=== PATIENT | female | born 1960 | race Caucasian/White ===

== ENCOUNTER 2024-01-02 17:00 | Emergency (ER) | payer OTHER, SELFPAY ==
--- NOTE | ~2024-01-02 | XR_ITS ---
XR chest 2V Ordering provider: Abisai Belcher MD History: 63 years Female with . cp, sob . Comparison: June 24, 2011 FINDINGS: MEDIASTINUM: The cardiac silhouette is not enlarged. LUNGS: No infiltrates, effusions or pneumothorax. OTHER: No free air under the diaphragm. IMPRESSION: No acute cardiopulmonary pathology. Reviewed, dictated and finalized at location A.
--- NOTE | ~2024-01-02 | CT_ITS ---
CT brain wo con Ordering provider: Tran Vu APRN History: 63 years Female with . sudden onset headache, dizziness, blurry vision . Comparison: None. Technique: CT of the head without contrast. Radiation reduction technique utilized.The dose-length product was 681 mGy-cm. FINDINGS: BRAIN PARENCHYMA AND CSF SPACES: Mild leukoaraiosis and diffuse cortical atrophy. Mild atheromatous d isease. No midline shift, mass effect or hemorrhage. The brain parenchyma and CSF spaces are otherwi se normal. VISUALIZED PARANASAL SINUSES: Well aerated. MASTOIDS: Well aerated. BONES: The bones appear intact. SOFT TISSUES: Visualized nasopharynx is normal. Superficial soft tissues are normal. IMPRESSION: No acute intracranial findings. Reviewed, dictated and finalized at location A.
[2024-01-02 17:02] VITALS: BP 153/110; PULSE 93; RESP 20; TEMP 36.6; O2SAT 98
--- NOTE | 2024-01-02 17:03 | ECG_ITS ---
Test Date: 2024-01-02 17:09:07 Measurements Intervals [place] Rate: 70 P: 62 MN: 181 QRS: 60 QRSD: 89 T: 59 QT: 407 QTc: 442 Interpretive Statements SINUS RHYTHM No previous ECG available for comparison Electronically Signed On 01-03-2024 09:39:39 CDT by Pineda Smyth M.D.
[2024-01-02 17:17] LABS: Basophils Absolute Auto 0.1 K/mm3 (0.0-0.1); Basophils Percent Auto 1.2 % (0.2-1.2); Eosinophils Absolute Auto 0.1 K/mm3 (0-0.3); Eosinophils Percent Auto 1.2 % (0-4.4); Hematocrit 41.2 % (37.0-47.0); Hemoglobin 14.1 g/dL (12.0-15.0); Immature Granulocyte Absolute 0.01 K/mm3 (0.00-0.031); Immature Granulocyte Percent A 0.2 % (0-0.5); Lymphocytes Absolute Auto 2.87 K/mm3 (0.9-3.2); Lymphocytes Percent Auto 48.6 % (18.3-44.2); Mean Corpuscular HGB Conc 34.2 g/dl (32-36); Mean Corpuscular Hemoglobin 30.7 pg (26-34); Mean Corpuscular Volume 89.8 fl (80-100); Mean Platelet Volume 9.1 fl (7.4-10.4); Monocytes Absolute Auto 0.4 K/mm3 (0.1-0.6); Monocytes Percent Auto 6.6 % (2.6-8.5); Neutrophils Absolute Auto 2.5 K/mm3 (1.3-6.7); Neutrophils Percent Auto 42.2 % (45.5-73.1); Platelet Count Result 277 k/mm3 (150-375); Red Blood Count 4.59 M/mm3 (4.2-5.4); Red Cell Distribution Width 12.4 % (11.5-14.5); White Blood Count 5.9 K/mm3 (4.5-10.0)
[2024-01-02 17:32] LABS: Prothrombin Time 13.2 Seconds (11.1-14.7)
[2024-01-02 17:33] LABS: Alanine Aminotransferase 21 U/L (6-35); Albumin Level 4.4 g/dL (3.5-5.1); Alkaline Phosphatase 90 U/L (38-126); Anion Gap 8 mmol/L (4-12); Aspartate Amino Transferase 20 U/L (14-36); Bilirubin,Total 0.6 mg/dL (0.2-1.3); Blood Urea Nitrogen 12 mg/dL (7-17); Calcium 9.3 mg/dL (8.4-10.2); Carbon Dioxide 27 mmol/L (22-30); Chloride 105 mmol/L (98-107); Estimated CRCL calculation 66 ml/min; Estimated Glomerular Filt Rate > 60; Glucose 113 mg/dL (65-110); Lipase 72 U/L (23-300); Potassium 3.7 mmol/L (3.4-5.0); Sodium 140 mmol/L (137-145)
[2024-01-02 17:34] LABS: Partial Thromboplastin Time 22.6 Seconds (22.3-36.8)
[2024-01-02 17:44] LABS: Troponin I < 0.012 ng/mL (0.000-0.034)
--- NOTE | 2024-01-02 18:28 | ED_ITS ---
HPI - Chest Pain General Chief Complaint: Chest Pain <Tran Vu RELOCATION COUNSELOR - Last Filed: 01/02/24 18:33> Stated Complaint: cp, sob, elevated bp <Tran Vu APRN - Last Filed: 01/02/24 18:33> Time Seen by Provider: 01/02/24 18:25 <Tran Vu RELOCATION COUNSELOR - Last Filed: 01/02/24 18:33> Focused HPI: Patient is a 63-year-old female presents to the ER with multiple medical complaints. She endorses a headache, lightheadedness, blurry vision, chest pain, jaw pain, and bilateral upper arm fatigue. patient reports she has never been diagnosed with high blood pressure but used her son's cuff to take it yesterday and the reading was 180/90s. Today she took her blood pressure at home again and it was 170s/90s. She denies any recent sick contacts and denies any recent fevers. Patient reports she takes Adderall every day to treat her ADD and also uses a CPAP at night. She denies any current shortness of breath but reports she did increased shortness of breath when she was on a walk yesterday. GENERAL: Well-appearing, well-nourished, and in no acute distress. HEAD: Normocephalic, atraumatic. CHEST: Clear to auscultation. ?No respiratory distress. Mild bilateral lower extremity edema with no pitting. HEART: Regular rate and rhythm.? NEURO: ?Alert and oriented x3. Patient screened in triage and initial orders placed.? ?Additional care and disposition to be based upon?diagnostic testing and treatment. <Tran Vu APRN - Last Filed: 01/02/24 18:33> History of Present Illness HPI narrative: Patient is a 63-year-old female presents emergency department with chief complaint of chest pain. Patient reports that she takes Adderall for ADHD and noticed yesterday she started having some discomfort in her chest also notes that she had some episodes of feeling dizzy and reports that she has had a little bit of a headache the patient states that she did not take her Adderall today and today had some other episodes of discomfort in her chest patient den ies diaphoresis reports that she did feel some uncomfortable feeling in her jaw the patient reports no personal prior history of cardiac disease reports she had a stress test many years ago the patient reports that currently the symptoms are extremely mild <Chicho Multani MD - Last Filed: 01/02/24 21:36> Related Data Allergies/Adverse Reactions: Allergies Allergy/AdvReac Type Severity Reaction Status Date / Time milk Allergy Unknown Asthma Verified 01/02/24 17:01 <Tran Vu APRN - Last Filed: 01/02/24 18:33> Review of Systems Review of Systems: A 10 system review of systems was completed on the patient and is negative except for what is stated in the HPI. Nursing and ancillary documentation was reviewed. <Chicho Multani MD - Last Filed: 01/02/24 21:36> Exam Narrative: GENERAL: Well-appearing, well-nourished, and in no acute distress. HEAD: Normocephalic, atraumatic. EYES: PERRLA and EOMI. ENT: Nares clear, no rhinorrhea or epistaxis. Mucous membranes moist. NECK: Supple. CHEST: Clear to auscultation. No respiratory distress. HEART: Regular rate and rhythm. No murmur heard. Normal peripheral pulses. ABDOMEN: Soft, nontender, nondistended, normal active bowel sounds. EXTREMITIES: Normal range of motion. No edema. SKIN: Warm, dry, no rash. NEURO: No focal deficits. Alert and oriented x3. PSYCH: Normal mood and affect. <Chicho Multani MD - Last Filed: 01/02/24 21:36> Course Vital Signs Vital signs: Vital Signs Temperature 36.6 C 01/02/24 17:02 Pulse Rate 93 01/02/24 17:02 Respiratory Rate 20 01/02/24 17:02 Blood Pressure 153/110 H 01/02/24 17:02 Pulse Oximetry 98 01/02/24 17:02 Oxygen Delivery Room Air 01/02/24 17:02 Temperature 36.5 C 01/02/24 20:53 Pulse Rate 70 01/02/24 20:53 Respiratory Rate 16 01/02/24 20:53 Blood Pressure 154/96 H 01/02/24 20:53 Pulse Oximetry 97 01/02/24 20:53 Oxygen Delivery Room Air 01/02/24 20:53 <Tran Vu APRN - Last Filed: 01/02/24 18:33> Vital Signs Temperature 36.6 C 01/02/24 17:02 Pulse Rate 93 01/02/24 17:02 Respiratory Rate 20 01/02/24 17:02 Blood Pressure 153/110 H 01/02/24 17:02 Pulse Oximetry 98 01/02/24 17:02 Oxygen Delivery Room Air 01/02/24 17:02 Temperature 36.5 C 01/02/24 20:53 Pulse Rate 70 01/02/24 20:53 Respiratory Rate 16 01/02/24 20:53 Blood Pressure 154/96 H 01/02/24 20:53 Pulse Oximetry 97 01/02/24 20:53 Oxygen Delivery Room Air 01/02/24 20:53 <Chicho Multani MD - Last Filed: 01/02/24 21:36> MDM - Chest Pain MDM Narrative Medical decision making narrative: Adenosis includes ACS, noncardiac chest pain, he atypical chest pain, Laboratory studies were obtained on the patient showed normal CBC normal CMP EKG showed no acute ischemic changes initial troponin was negative Chest x-ray showed no focal findings CT head showed no evidence of acute abnormality COVID flu and RSV were negative Initial troponin was negative repeat troponin was also negative. The patient would like opt outpatient follow-up. The patient was instructed follow up with primary care provider <Chicho Multani MD - Last Filed: 01/02/24 21:36> Lab Data Result diagrams: 01/02/24 17:13 01/02/24 17:13 <Tran Vu APRN - Last Filed: 01/02/24 18:33> Labs: Lab Results 01/02/24 01/02/24 01/02/24 Range/Units 17:13 19:12 21:03 WBC 5.9 (4.5-10.0) K/mm3 RBC 4.59 (4.2-5.4) M/mm3 Hgb 14.1 (12.0-15.0) g/dL Hct 41.2 (37.0-47.0) % MCV 89.8 (80-100) fl MCH 30.7 (26-34) pg MCHC 34.2 (32-36) g/dl RDW 12.4 (11.5-14.5) % Plt Count 277 (150-375) k/mm3 MPV 9.1 (7.4-10.4) fl Immature Gran % (Auto) 0.2 (0-0.5) % Neut % (Auto) 42.2 L (45.5-73.1) % Lymph % (Auto) 48.6 H (18.3-44.2) % [place] % (Auto) 6.6 (2.6-8.5) % Eos % (Auto) 1.2 (0-4.4) % Baso % (Auto) 1.2 (0.2-1.2) % Lymph # (Auto) 2.87 (0.9-3.2) K/mm3 [place] # (Auto) 0.4 (0.1-0.6) K/mm3 Eos # (Auto) 0.1 (0-0.3) K/mm3 Baso # (Auto) 0.1 (0.0-0.1) K/mm3 Abs Immat Gran (auto) 0.01 (0.00-0.031) K/mm3 Absolute Neuts (auto) 2.5 (1.3-6.7) K/mm3 Absolute Nucleated RBC 0.000 (0.0-0.012) K/mm3 Nucleated RBC % 0.0 (0.0-0.2) % PT 13.2 (11.1-14.7) Seconds INR 1.0 APTT 22.6 (22.3-36.8) Seconds D-Dimer < 0.27 (<0.48) ug/mL Sodium 140 (137-145) mmol/L Potassium 3.7 (3.4-5.0) mmol/L Chloride 105 (98-107) mmol/L Carbon Dioxide 27 (22-30) mmol/L Anion Gap 8 (4-12) mmol/L BUN 12 (7-17) mg/dL Creatinine 0.90 (0.7-1.0) mg/dL Estim Creat Clear Calc 66 ml/min Estimated GFR > 60 (59 - ) Glucose 113 H (65-110) mg/dL Calcium 9.3 (8.4-10.2) mg/dL Total Bilirubin 0.6 (0.2-1.3) mg/dL AST 20 (14-36) U/L ALT 21 (6-35) U/L Alkaline Phosphatase 90 (38-126) U/L Troponin I < 0.012 < 0.012 (0.000-0.034) ng/mL NT-Pro-B Natriuret Pep 29 (19.9-100) pg/mL Total Protein 8.0 (6.3-8.2) g/dL Albumin 4.4 (3.5-5.1) g/dL Lipase 72 (23-300) U/L Influenza A (RT-PCR) Negative (Negative) Influenza B (RT-PCR) Negative (Negative) RSV (RT-PCR) Negative (Negative) SARS-CoV-2 RNA (RT-PCR) Negative (Negative) <Tran Vu, RELOCATION COUNSELOR - Last Filed: 01/02/24 18:33> Lab Results 01/02/24 01/02/24 01/02/24 Range/Units 17:13 19:12 21:03 WBC 5.9 (4.5-10.0) K/mm3 RBC 4.59 (4.2-5.4) M/mm3 Hgb 14.1 (12.0-15.0) g/dL Hct 41.2 (37.0-47.0) % MCV 89.8 (80-100) fl MCH 30.7 (26-34) pg MCHC 34.2 (32-36) g/dl RDW 12.4 (11.5-14.5) % Plt Count 277 (150-375) k/mm3 MPV 9.1 (7.4-10.4) fl Immature Gran % (Auto) 0.2 (0-0.5) % Neut % (Auto) 42.2 L (45.5-73.1) % Lymph % (Auto) 48.6 H (18.3-44.2) % [place] % (Auto) 6.6 (2.6-8.5) % Eos % (Auto) 1.2 (0-4.4) % Baso % (Auto) 1.2 (0.2-1.2) % Lymph # (Auto) 2.87 (0.9-3.2) K/mm3 [place] # (Auto) 0.4 (0.1-0.6) K/mm3 Eos # (Auto) 0.1 (0-0.3) K/mm3 Baso # (Auto) 0.1 (0.0-0.1) K/mm3 Abs Immat Gran (auto) 0.01 (0.00-0.031) K/mm3 Absolute Neuts (auto) 2.5 (1.3-6.7) K/mm3 Absolute Nucleated RBC 0.000 (0.0-0.012) K/mm3 Nucleated RBC % 0.0 (0.0-0.2) % PT 13.2 (11.1-14.7) Seconds INR 1.0 APTT 22.6 (22.3-36.8) Seconds D-Dimer < 0.27 (<0.48) ug/mL Sodium 140 (137-145) mmol/L Potassium 3.7 (3.4-5.0) mmol/L Chloride 105 (98-107) mmol/L Carbon Dioxide 27 (22-30) mmol/L Anion Gap 8 (4-12) mmol/L BUN 12 (7-17) mg/dL Creatinine 0.90 (0.7-1.0) mg/dL Estim Creat Clear Calc 66 ml/min Estimated GFR > 60 (59 - ) Glucose 113 H (65-110) mg/dL Calcium 9.3 (8.4-10.2) mg/dL Total Bilirubin 0.6 (0.2-1.3) mg/dL AST 20 (14-36) U/L ALT 21 (6-35) U/L Alkaline Phosphatase 90 (38-126) U/L Troponin I < 0.012 < 0.012 (0.000-0.034) ng/mL NT-Pro-B Natriuret Pep 29 (19.9-100) pg/mL Total Protein 8.0 (6.3-8.2) g/dL Albumin 4.4 (3.5-5.1) g/dL Lipase 72 (23-300) U/L Influenza A (RT-PCR) Negative (Negative) Influenza B (RT-PCR) Negative (Negative) RSV (RT-PCR) Negative (Negative) SARS-CoV-2 RNA (RT-PCR) Negative (Negative) <Chicho Multani MD - Last Filed: 01/02/24 21:36> Discharge Plan Discharge Clinical Impression: Atypical chest pain <Tran Vu APRN - Last Filed: 01/02/24 18:33> Patient Disposition: Home, Self-Care <Tran Vu APRN - Last Filed: 01/02/24 18:33> Condition: Stable <rTan Vu APRN - Last Filed: 01/02/24 18:33> Instructions: Antibiotic Form, Chest Pain (ED) <Tran Vu APRN - Last Filed: 01/02/24 18:33> Follow-up/Referrals: PHYSICIAN NOT ON STAFF,NONSTAFF [Non-Staff] - <Tran Vu APRN - Last Filed: 01/02/24 18:33> Time of Disposition: 21:36 <Tran Vu APRN - Last Filed: 01/02/24 18:33> 21:36 <Chicho Multani MD - Last Filed: 01/02/24 21:36>
[2024-01-02] MEDS: ASPIRIN 81 MG CHEWABLE TABLET 324 MG PO (19:11)
[2024-01-02 19:18] LABS: D Dimer < 0.27 ug/mL (<0.48)
[2024-01-02 19:26] LABS: NT Pro B Type Natriuretic Pept 29 pg/mL (19.9-100)
[2024-01-02 19:53] LABS: Influenza A QL RT-PCR Negative (Negative); Influenza B QL RT-PCR Negative (Negative); RSV RNA, RT-PCR Negative (Negative); SARS-CoV-2 RNA PCR Negative (Negative)
--- NOTE | 2024-01-02 20:46 | ECG_ITS ---
Test Date: 2024-01-02 21:25:27 Measurements Intervals [place] Rate: 66 P: 59 MI: 197 QRS: 52 QRSD: 94 T: 59 QT: 423 QTc: 445 Interpretive Statements SINUS RHYTHM WITH SINUS ARRHYTHMIA Compared to ECG 01/02/2024 17:09:07 No significant changes Electronically Signed On 01-03-2024 09:40:18 CDT by Pineda Smyth M.D.
[2024-01-02 20:52] VITALS: PULSE 70
[2024-01-02 20:53] VITALS: BP 154/96; PULSE 70; RESP 16; TEMP 36.5; O2SAT 97
[2024-01-02 21:29] LABS: Troponin I < 0.012 ng/mL (0.000-0.034)
[2024-01-02 21:52] VITALS: BP 122/75; PULSE 59; RESP 20; O2SAT 98
== END 2024-01-02 21:53 | disposition home or self-care (01) ==
LOC: ANHED 21:21
PROVIDERS: Emergency Medicine; Registered Nurse; Emergency Provider Emergency Medicine
DX: R07.89 Other chest pain (principal); Z20.822 Contact with and (suspected) exposure to COVID-19; F90.9 Attention-deficit hyperactivity disorder, unspecified type
CPT/HCPCS: 36415; 70450; 71046; 80053; 83690; 83880; 84484; 85025; 85380; 85610; 85730; 87637; 93005; 99284; A9270

== ENCOUNTER 2025-02-18 10:47 | Emergency (ER) | payer OTHER, SELFPAY ==
--- NOTE | ~2025-02-18 | XR_ITS ---
EXAMINATION: XR toe 4th LT min 2V DATE: 02/18/2025 11:12 INDICATION: Injury TECHNIQUE: Left fourth toe x-rays were obtained. COMPARISON: None. FINDINGS: Mildly comminuted minimally displaced extra-articular fracture with possible butterfly fragment in the proximal phalanx of the fourth digit. No pathologic lesion seen. No other fracture seen. IMPRESSION: 1. Mildly comminuted and minimally displaced fracture through the proximal phalanx of the left fourth digit. Reviewed, dictated and finalized at location A. [employer]ETTE [employer]ER IMPRESSION: 1. Mildly comminuted and minimally displaced fracture through the proximal phal anx of the left fourth digit.
[2025-02-18 10:57] VITALS: BP 138/85; PULSE 84; RESP 16; TEMP 36.7; O2SAT 97
--- NOTE | 2025-02-18 11:15 | ED_ITS ---
HPI - Extremity Injury (Lower) General Chief Complaint: Extremity Injury, Lower Stated Complaint: Injured L Toe Time Seen by Provider: 02/18/25 11:05 Source: patient and RN notes reviewed Mode of arrival: ambulatory Limitations: no limitations History of Present Illness HPI Narrative: 64-year-old female patient presents today complaining of an injury to the left 4th toe. She was walking up some stairs today when she caught the toe on a corner of a wall and hyperextended the toe. Denies numbness or tingling in the toes. States is give medially following the injury she, ?popped? the toe back in place twice. Currently rates her pain 4/10, which increases with weight- bearing. Related Data Home Medications ?Medication ?Instructions ?Recorded ?Confirmed ?Last Taken ?Type No Home Medications 02/18/25 02/18/25 U nknown History Allergies Allergy/AdvReac Type Severity Reaction Status Date / Time milk Allergy Unknown Asthma Verified 02/18/25 10:48 [facility] Comments At time of signature, I have reviewed and agree with nursing past medical, nathan rgical, social and family history unless otherwise noted. Please see nursing chart for further information. There is no relevant family history pertinent to the presenting complaint Exam Narrative: GENERAL: Well-appearing, well-nourished, and in no acute distress. HEAD: Normocephalic, atraumatic. EYES: EOMI. No redness or drainage. Conjunctivae normal. ENT: Mucous membranes pink and moist. NECK: Normal AROM. CHEST: No respiratory distress. EXTREMITIES: Left 4th toe: Mild edema to the toe with tenderness to the base and faint ecchymosis. Distal sensation intact. Capillary refill mildly decreased range of motion of the toe due to pain and swelling. SKIN: Warm, dry, no rash. Capillary refill normal. Normal skin turgor. NEURO: No focal deficits. Alert and oriented x3. Gait steady. PSYCH: Normal affect. No signs of depression or anxiety. Course Course Level of Care: Express Care Visit Vital Signs Vital signs: Vital Signs Temperature 98.1 F 02/18/25 10:57 Pulse Rate 84 02/18/25 10:57 Respiratory Rate 16 02/18/25 10:57 Blood Pressure 138/85 02/18/25 10:57 Pulse Oximetry 97 02/18/25 10:57 Temperature 98.1 F 02/18/25 10:57 Pulse Rate 84 02/18/25 10:57 Respiratory Rate 16 02/18/25 10:57 Blood Pressure 138/85 02/18/25 10:57 Pulse Oximetry 97 02/18/25 10:57 Reviewed MDM MDM Narrative Medical decision making narrative: 64-year-old female patient presents today complaining of an injury to the left 4th toe. She was walking up some stairs today when she caught the toe on a corner of a wall and hyperextended the toe. Denies numbness or tingling in the toes. States is give medially following the injury she, ?popped? the toe back in place twice. Currently rates her pain 4/10, which increases with weight-bearing.. Upon exam, patient has tenderness, swelling, and some ecchymosis to the 4th toe, mostly at the base. X-ray shows comminuted and mildly displaced fracture at the proximal phalanx. Patient will be placed in a postop shoe with norman taping of the toes. She will follow-up with orthopedics or podiatry for further evaluation. Patient agrees with plan. Vital signs stable. Anticipatory guidance given. Differential Diagnosis Differential Diagnosis: Fracture, contusion, dislocation, sprain Imaging Data Radiologist's impression: ITS Impressions Toe X-Ray 02/18/25 11:25 IMPRESSION: 1. Mildly comminuted and minimally displaced fracture through the proximal phalanx of the left fourth digit. Critical Care Time Critical Care Time Critical Care Time: No Discharge Plan Discharge Clinical Impression: Fracture of toe of left foot Qualifiers: Encounter type: initial encounter Toe: lesser toe Fracture type: closed P halanx: proximal Fracture alignment: displaced Qualified Code(s): S92.512A - Displaced fracture of proximal phalanx of left lesser toe(s), initial encounter for closed fracture Patient Disposition: Home Condition: Stable Instructions: Toe Fracture (ED) Additional Instructions: Your x-ray shows fracture of the base of your toe. Your toe has been norman taped for stability and you have been placed in a hard-soled shoe. Please elevate and ice the foot. Take Tylenol or ibuprofen at home for pain, if able. Follow-up with orthopedics or podiatry for further evaluation. Patient Language: Syrian Prescriptions: No Action No Home Medications Follow-up/Referrals: PHYSICIAN,PRODUCT OPERATIONS ASSOCIATE [Primary Care Provider, Internal Medicine] Johnathon Villalta MD [Physician, Orthopedics] Time of Disposition: 11:41
== END 2025-02-18 11:52 | disposition home or self-care (01) ==
PROVIDERS: Emergency Provider Nurse Practitioner
DX: S92.512A Displaced fracture of proximal phalanx of left lesser toe(s), initial encounter for closed fracture (principal); W22.01XA Walked into wall, initial encounter
CPT/HCPCS: 73660; 99214; G0463